=== PATIENT | male | born 2000 | race Caucasian/White ===

== ENCOUNTER 2018-01-31 09:39 | Emergency (ER) | payer BC ==
--- NOTE | 2018-01-31 10:24 | EDPHY ---
H & P Time Seen by Provider: 01/31/18 09:58 HPI/ROS: Chief complaint. Abdominal pain, nausea vomiting HPI. 18-year-old male presents emergency department with epigastric abdominal pain that began about 2:00 a.m.. He describes as sharp. No radiation. He felt bloated and had nausea vomiting. No diarrhea. He has a recent history of acid reflux issue and has been using medication. He drank half a beer last evening. No history of previous abdominal problems or abdominal surgery. He has no urinary symptoms. He still nauseated but his abdominal pain is better now. No chest discomfort or trouble breathing. Several weeks ago patient discontinued 5 medications and has had increased anxiety since that time. He has been using intermittently [id number] Prilosec ROS Constitutional. no fever/chills, no weakness Eyes. no problems with vision ENT. no sore throat, no nasal drainage Cardiovascular. no chest pain Respiratory. no shortness of breath, no cough Abdominal. Abdominal pain with nausea [place] . no problems urinating MS. no calf pain/swelling, no neck/back pain, no joint pain Skin. no rash Lymph. no swollen glands Neuro. no headache, no dizziness, no difficulty walking or with speech Past Medical/Surgical History: GERD, anxiety Social History: Single, nonsmoker. Sober Smoking Status: Never smoked Physical Exam: General Appearance: Alert well-developed male mild distress vital signs are stable Eyes: Pupils equal and round no pallor or injection. ENT, Mouth: Mucous membranes are moist. Respiratory: There are no retractions, lungs are clear to auscultation. Cardiovascular: Regular rate and rhythm. Gastrointestinal: Abdomen is soft with tenderness in the epigastrium as well as right and left upper quadrants. No masses. Normal bowel sounds. No low abdominal tenderness. No tenderness at McBurney's point. Neurological: Awake and alert, sensory and motor exams grossly normal. Skin: Warm and dry, no rashes. Musculoskeletal: Neck is supple nontender. Extremities symmetrical, full range of motion. Psychiatric: Patient is oriented X 3, there is no agitation. Constitutional: Initial Vital Signs Temperature (C) 36.6 C 01/31/18 09:40 Heart Rate 65 01/31/18 09:40 Respiratory Rate 16 01/31/18 09:40 Blood Pressure 100/60 01/31/18 09:40 O2 Sat (%) 98 08/26/18 09:40 O2 Delivery Mode Room Air Allergies/Adverse Reactions: No Known Allergies Allergy (Unverified 01/31/18 09:43) Home Medications: Medication Instructions Recorded Dextroamphetamine/Amphetamine 12.5 mg PO 01/31/18 [Mydayis ER 12.5 mg Capsule] Esomeprazole Mag Trihydrate 40 mg PO DAILY #14 01/31/18 [Nexium] Gabapentin [Neurontin 100 MG (*)] 100 mg PO HS 01/31/18 traZODone [traZODONE 50MG (*)] 50 mg PO 01/31/18 Medical Decision Making Procedures: IV normal saline. Zofran I V. GI cocktail. ED Course/Re-evaluation: On re-evaluation patient is improved. The GI cocktail markedly decreased is discomfort in the epigastrium. No further nausea or vomiting. Patient, his mom and I discussed laboratory evaluation, treatment plan including criteria for return importance of follow-up further evaluation. They expressed understanding and agreement Differential Diagnosis: I considered peptic ulcer disease, pancreatitis, GERD - Data Points Laboratory Results: Laboratory Results 01/31/18 10:05 01/31/18 10:05 Medications Given: Discontinued Medications Al Hydroxide/Mg Hydroxide (Maalox Susp) 30 ml PO ONCE ONE Stop: 01/31/18 10:32 Last Admin: 01/31/18 10:39 Dose: 30 ml Sodium Chloride (Ns) 1,000 mls @ 0 mls/hr IV EDNOW ONE; Wide Open PRN Reason: Protocol Stop: 01/31/18 10:32 Last Admin: 01/31/18 10:37 Dose: 1,000 mls Lidocaine (Lidocaine 2% Viscous) 15 ml PO ONCE ONE Stop: 01/31/18 10:32 Last Admin: 01/31/18 10:39 Dose: 15 ml Ondansetron HCl (Zofran) 4 mg IVP EDNOW ONE Stop: 01/31/18 10:32 Last Admin: 01/31/18 10:37 Dose: 4 mg Departure - Departure Disposition: Home, Routine, Self-Care Clinical Impression: Abdominal pain Condition: Good Instructions: Abdominal Pain (ED) Additional Instructions: May use Maalox and Mylanta to help also with abdominal pain using 2 tbsp especially at bedtime. Nexium as medication to help with stomach and acid reflux Caution with aspirin, Advil, alcohol. [facility] to help with evaluation for anxiety Call pot annealer to arrange further evaluation. Return for worsening symptoms Referrals: [facility] [Other] - As per Instructions Demetri Sheridan MD [Medical Doctor] - As per Instructions [facility] [Clinic] - As per Instructions Prescriptions: Esomeprazole Mag Trihydrate [Nexium] 40 mg PO DAILY #14 cap.
[2018-01-31] MEDS ORDERED: NS 1,000 ML IV ONE (10:31)
[2018-01-31] MEDS ORDERED: MAG HYDROX/AL HYDROX/SIMETH 30 ML UDCUP PO ONE (10:31)
[2018-01-31] MEDS ORDERED: LIDOCAINE 2% VISCOUS 15 ML UDCUP PO ONE (10:31)
[2018-01-31] MEDS ORDERED: ONDANSETRON 4 MG/2 ML VIAL IVP ONE (10:31)
[2018-01-31 11:00] LABS: PLATELET COUNT 202 10^3/uL (150-400)
[2018-01-31 11:33] VITALS: BP 112/49
== END 2018-01-31 12:26 | disposition home or self-care (01) ==
DX: R10.13 Epigastric pain (principal); R11.2 Nausea with vomiting, unspecified
CPT/HCPCS: 96374; J2405